=== PATIENT | male | born 1970 | race Caucasian/White ===

== ENCOUNTER 2019-12-04 20:42 | Inpatient (IN) | payer BC ==
[2019-12-05] MEDS ORDERED: LORazepam 2 MG/ML SDV IM PRN (06:35)
[2019-12-05] MEDS ORDERED: Sodium Chloride 0.9% 10 ML Syringe FLUSH PRN (06:35)
--- NOTE | 2019-12-05 06:35 | PCM.HP.2 ---
H&P History of Present Illness - General Date of Service: 12/05/19 Admit Problem/Dx: Admission Diagnosis/Problem Admission Diagnosis/Problem Ascites Source of Information: Patient, Old Records History Limitations: Reports: No Limitations - History of Present Illness Initial Comments - Free Text/Narative: The patient is a 49-year-old gentleman who was a direct admission from [place] for alcoholic withdrawals and cirrhosis with ascites. The patient reports that his last drink was from the day before admission. The patient was also noted to have been Covid negative. Further, the patient says that he had a therapeutic paracentesis completed in [place], [place] on November 25, 2019. Patient says that he has had some pain in his left lower rib cage whenever the ascites does accumulate. Patient has denied any aggravating or relieving factors. He is denied any pain. The patient does not have any other chronic medical issues other than nose related to his alcoholic cirrhosis and portal hypertension. The patient says that he does not have seizures whenever he is without alcohol or tremors. Onset of Symptoms: Reports: Gradual Duration of Symptoms: Reports: Day(s):, Getting Worse Location: Reports: Abdomen Quality: Reports: Pressure Severity: Moderate Improves with: Reports: Other (Therapeutic paracentesis) Worsens with: Reports: None Associated Symptoms: Reports: Loss of Appetite - Related Data Allergies/Adverse Reactions: Allergies Allergy/AdvReac Type Severity Reaction Status Date / Time Penicillins Allergy Rash Verified 12/04/19 23:13 Home Medications: Home Meds Amitriptyline [Elavil] 25 mg PO BEDTIME 12/04/19 [History] Enalapril Maleate [Vasotec] 20 mg PO DAILY 12/04/19 [History] Escitalopram [Lexapro] 10 mg PO DAILY 12/04/19 [History] Furosemide 40 mg PO DAILY 12/04/19 [History] Magnesium Oxide 400 mg PO DAILY 12/04/19 [History] Omeprazole 40 mg PO ACBREAKFAST PRN 12/04/19 [History] Spironolactone 50 mg PO DAILY 12/04/19 [History] atorvaSTATin [Lipitor] 10 mg PO BEDTIME 12/04/19 [History] nadoloL [Corgard] 20 mg PO BID 12/04/19 [History] Past Medical History HEENT History: Reports: Impaired Vision, Other (See Below) Other HEENT History: wears glasses Cardiovascular History: Reports: High Cholesterol, Hypertension Respiratory History: Reports: Other (See Below) Other Respiratory History: right lower lobe nodule Gastrointestinal History: Reports: Cirrhosis, GERD, Other (See Below) Other Gastrointestinal History: portal hypertension Genitourinary History: Reports: None Musculoskeletal History: Reports: None Neurological History: Reports: None Psychiatric History: Reports: ADHD, Addiction, Depression, Other (See Below) Other Psychiatric History: insomnia Endocrine/Metabolic History: Reports: None Hematologic History: Reports: Other (See Below) Other Hematologic History: secondary thrombocytopenia; macrocytic anemia; hyponatremia Dermatologic History: Reports: Eczema - Past Surgical History Cardiovascular Surgical History: Reports: Other (See Below) Other Cardiovascular Surgeries/Procedures: coarctation of aorta in 1969 and 1978 GI Surgical History: Reports: Colonoscopy, EGD, Hernia Repair/Other, Other (See Below) Other GI Surgeries/Procedures: paracentesis with most recent one done 11/26/19 Social & Family History - Family History Family Medical History: Noncontributory - Tobacco Use Tobacco Use Status *Q: Former Tobacco User Used Tobacco, but Quit: Yes Month/Year Tobacco Last Used: 2017 - Caffeine Use Caffeine Use: Reports: None - Recreational Drug Use Recreational Drug Use: No H&P Review of Systems - Review of Systems: Review Of Systems: See Below General: Reports: Malaise, Weakness HEENT: Reports: No Symptoms Pulmonary: Reports: Shortness of Breath Cardiovascular: Reports: No Symptoms Gastrointestinal: Reports: Abdominal Pain, Distension, Other (Rapidly reaccumulating ascites). Denies: Constipation, Diarrhea, Nausea Genitourinary: Reports: No Symptoms Musculoskeletal: Reports: No Symptoms Skin: Reports: No Symptoms Psychiatric: Reports: No Symptoms Neurological: Reports: Tremors Hematologic/Lymphatic: Reports: Easy Bleeding Immunologic: Reports: No Symptoms Exam - Exam Exam: See Below - Vital Signs Vital Signs: Last Vital Signs Temp 37.1 C 12/04/19 22:43 Pulse 71 12/04/19 22:43 Resp 18 12/04/19 22:43 BP 140/78 12/04/19 22:43 Pulse Ox 100 12/04/19 22:43 Weight: 73.89 kg - Exam Quality Assessment: No: Supplemental Oxygen, DVT Prophylaxis General: Alert, Oriented, Cooperative HEENT: EACs Clear, EOMI, Hearing Intact, Scleral Icterus. No: Conjunctiva Clear (Jaundiced), Mucosa Moist & [place] (Dry) Neck: Supple, Trachea Midline Lungs: Normal Respiratory Effort, Rales (Bibasilar) Cardiovascular: Regular Rate, Regular Rhythm GI/Abdominal Exam: Soft, Distended (Severely), Other (Ascites, caput medusae). No: Guarding, Rigid, Rebound (Male) Exam: Deferred Rectal (Males) Exam: Deferred Back Exam: Normal Inspection, Full Range of Motion Extremities: Normal Inspection, No Pedal Edema Skin: Warm, Dry, Intact, Other (Jaundiced with bilateral pulmonary flush and telangiectasias) Neurological: Cranial Nerves Intact, Other (No asterixis) Neuro Extensive - Mental Status: Alert, Oriented x3 Psychiatric: Alert, Normal Affect, Normal Mood - Patient Data Result Diagrams: 12/05/19 05:50 12/05/19 05:50 Sepsis Event Note - Evaluation Sepsis Screening Result: No Definite Risk - Focused Exam Vital Signs: Vital Signs Temp Pulse Resp BP Pulse Ox 12/04/19 22:43 37.1 C 71 18 140/78 100 - Problem List (1) Alcohol withdrawal SNOMED Code(s): 409747229 ICD Code: F10.239 - ALCOHOL DEPENDENCE WITH WITHDRAWAL, UNSPECIFIED Status: Acute Priority: High Current Visit: Yes Qualifiers: Complication of substance-induced condition: uncomplicated Qualified Cod e(s): F10.230 - Alcohol dependence with withdrawal, uncomplicated (2) Alcoholic cirrhosis of liver with ascites SNOMED Code(s): 019834938, 673638046 ICD Code: K70.31 - ALCOHOLIC CIRRHOSIS OF LIVER WITH ASCITES Status: Chronic Priority: High Current Visit: Yes (3) Anemia SNOMED Code(s): 930549671 ICD Code: D64.9 - ANEMIA, UNSPECIFIED Status: Chronic Priority: High Current Visit: Yes Qualifiers: Anemia type: acquired or hereditary hemolytic anemia Hemolytic anemia type: acquired, autoimmune, drug-induced Qualified Code(s): 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 (4) Portal hypertension SNOMED Code(s): 32574016 ICD Code: K76.6 - PORTAL HYPERTENSION Status: Chronic Priority: High Current Visit: Yes Problem Details: Rapidly reaccumulating ascites (5) Thrombocytopenia SNOMED Code(s): 137140314 ICD Code: D69.6 - THROMBOCYTOPENIA, UNSPECIFIED Status: Acute Current Visit: Yes Problem List Initiated/Reviewed/Updated: Yes Orders Last 24hrs: Active Orders 24 hr Category Date Time Status Patient Status [ADT] Routine ADT 12/04/19 23:06 Active Influenza Vaccine Charge [RC] .DISCHARGE Care 12/04/19 23:16 Active Regular Diet [DIET] Diet 12/05/19 Breakfast Active CBC WITH AUTO DIFF [HEME] Routine Lab 12/05/19 05:11 Ordered CMP [COMPREHENSIVE METABOLIC PN,CMP] [CHEM] Routine Lab 12/05/19 05:11 Ordered MG [MAGNESIUM] [CHEM] Routine Lab 12/05/19 05:11 Ordered PHOSPHORUS [CHEM] Routine Lab 12/05/19 05:11 Ordered Flu Vacc [id number](6Mos Up)/Pf [Fluzone Quad Med 12/05/19 10:00 Once Syringe] 60 mcg IM .ONCE ONE Code Status [Resuscitation Status] Routine Resus Stat 12/04/19 23:59 Ordered Medication Orders Influenza Virus Vaccine (Fluzone Quad Syringe) 60 mcg IM .ONCE ONE Stop: 12/05/19 10:01 Assessment/Plan Comment:: The patient is a 49-year-old gentleman who was admitted secondary to alcohol withdrawal. The patient will be kept on CIWA protocol. I have also ordered Ativan to assist with agitation/seizures. The patient will also have thiamine 100 mg p.o. daily, folic acid 1 mg p.o. daily and multivitamins. Because of the patient's history of coarctation of the aorta and possible cardiomyopathy I have ordered a 2D echocardiogram to assess this. The patient will have regular diet as tolerated. DVT prophylaxis is contraindicated secondary to the patient's thrombocytopenia and high INR. I have also ordered Protonix 40 mg IV push every 12 hours. The patient has a history of hypertension and he will be kept on his home medications. He also has been taking nadolol to help reduce his portal hypertension. We continued. The patient has been encouraged to ambulate with assistance. I have also consulted surgery for evaluation for therapeutic paracentesis. If this cannot be done the patient will be kept in hospital and stabilize for his withdrawal symptoms and then be considered for transfer to tertiary care center. I have also had a long conversation with the patient regarding his prognosis if he continues to consume alcohol. Given the patient's history of cirrhosis and still continuing to consume alcohol I suspect that this patient's prospect for continued sobriety are poor. - Mortality Measure Prognosis:: Poor
[2019-12-05] MEDS ORDERED: Sodium Chloride 0.9% 1,000 ML IV SCH (06:45)
[2019-12-05] MEDS: Magnesium Oxide 400 MG Tab PO SCH (08:35)
[2019-12-05] MEDS: Spironolactone 25 MG Tab PO SCH (08:36)
[2019-12-05] MEDS: Enalapril 5 MG Tab PO SCH (08:37)
[2019-12-05] MEDS: Furosemide 40 MG Tab PO SCH (08:38)
[2019-12-05] MEDS: Pantoprazole 40 MG Vial IVPUSH SCH ×2 (08:39→18:11)
[2019-12-05] MEDS ORDERED: Enoxaparin 30 MG/0.3 ML Syringe SUBCUT SCH (09:00)
[2019-12-05] MEDS ORDERED: FLU VACC QS2020-21(6MOS UP)/PF 60 MCG/0.5 ML SYRINGE IM ONE (10:00)
[2019-12-05] MEDS ORDERED: Magnesium Sulfate/Water 2 GM/50 ML BAG IV ONE (10:58)
[2019-12-05] MEDS: Multivitamins,Therapeutic Tab PO SCH (11:12)
[2019-12-05] MEDS: Folic Acid 1 MG Tab PO SCH (11:12)
[2019-12-05] MEDS ORDERED: Amitriptyline 25 MG Tab PO SCH (21:00)
[2019-12-05] MEDS ORDERED: Thiamine 100 MG Tab PO SCH (21:00)
[2019-12-06] MEDS: Pantoprazole 40 MG Vial IVPUSH SCH (06:52)
--- NOTE | 2019-12-06 08:59 | PCM.DCSUM1 ---
Discharge Summary - Discharge Data Discharge Date: 12/06/19 Discharge Disposition: DC/Tfer to Acute Hospital 02 Condition: Fair - Referral to Home Health Primary Care Physician: PCP None - Discharge Diagnosis/Problem(s) (1) Alcohol withdrawal SNOMED Code(s): 481949869 ICD Code: F10.239 - ALCOHOL DEPENDENCE WITH WITHDRAWAL, UNSPECIFIED Status: Acute Priority: High Current Visit: Yes Qualifiers: Complication of substance-induced condition: uncomplicated Qualified Code(s): F10.230 - Alcohol dependence with withdrawal, uncomplicated (2) Alcoholic cirrhosis of liver with ascites SNOMED Code(s): 545172284, 935745330 ICD Code: K70.31 - ALCOHOLIC CIRRHOSIS OF LIVER WITH ASCITES Status: Chronic Priority: High Current Visit: Yes (3) Anemia SNOMED Code(s): 088264063 ICD Code: D64.9 - ANEMIA, UNSPECIFIED Status: Chronic Priority: High Current Visit: Yes Qualifiers: Anemia type: acquired or hereditary hemolytic anemia Hemolytic anemia type: acquired, autoimmune, drug-induced Qualified Code(s): D59.0 - Drug-induced aut oimmune hemolytic anemia (4) Portal hypertension SNOMED Code(s): 17619260 ICD Code: K76.6 - PORTAL HYPERTENSION Status: Chronic Priority: High Current Visit: Yes Problem Details: Rapidly reaccumulating ascites (5) Thrombocytopenia SNOMED Code(s): 270481964 ICD Code: D69.6 - THROMBOCYTOPENIA, UNSPECIFIED Status: Acute Priority: High Current Visit: Yes - Patient Summary/Data Consults: Consultations 12/05/19 09:32 Consult to Physician [CONS] Urgent Hospital Course: The patient is a 49-year-old gentleman who is known for chronic alcoholism and severe alcoholic liver disease. The patient is a patient of radiological equipment specialist Dr. Crane. He is located in [facility]. The patient was admitted out of concern for alcoholic withdrawal symptoms. The patient had been in [facility] and he was noted to have a alcohol level of 0.33. The patient further had paracentesis completed in [facility] and had 9.9 L of ascites removed. The patient had reaccumulated severe ascites upon his presentation to the emergency department. The patient said that he had been short of breath. The patient was admitted to acute hospitalization and he was started on CIWA protocol and was given Ativan to help control withdrawal symptoms, agitation or seizures. He was also placed on thiamine 100 mg p.o. daily and folic acid 1 mg p.o. daily. General surgeon on-call was consulted and was unable to do paracentesis. The patient was kept in hospitalization to be monitored for acute withdrawal symptoms. The patient did not exhibit any withdrawal symptoms and his CIWA score was 0. Additionally, the patient was noted to be leukopenic and thrombocytopenic. The patient's INR was also elevated. His platelets were at 62,000. The patient was also hypomagnesemic and his magnesium was replaced. The patient was also hypoalbuminemic and this was likely secondary to hepatic synthesis. The patient also had been ordered to have a 2D echocardiogram due to possible cardiomyopathy as well as direct toxic effects of alcohol on heart muscle. This was unable to be obtained on the weekend. I would recommend that this be completed at a tertiary care center. The patient had been tolerating his regular diet. He has been recommended to continue with a regular diet as tolerated. The patient is also to have activity as tolerated. The patient also has been discharged from acute hospitalization by ambulance to emergency room at [facility] Dr. Hairston was excepting. - Patient Instructions Diet: Usual Diet as Tolerated Activity: As Tolerated - Discharge Plan *PRESCRIPTION DRUG MONITORING PROGRAM REVIEWED*: Not Applicable *COPY OF PRESCRIPTION DRUG MONITORING REPORT IN PATIENT STUART: Not Applicable Home Medications: Home Meds Amitriptyline [Elavil] 25 mg PO BEDTIME 12/04/19 [History] Enalapril Maleate [Vasotec] 20 mg PO DAILY 12/04/19 [History] Escitalopram [Lexapro] 10 mg PO DAILY 12/04/19 [History] Furosemide 40 mg PO DAILY 12/04/19 [History] Magnesium Oxide 400 mg PO DAILY 12/04/19 [History] Omeprazole 40 mg PO ACBREAKFAST PRN 12/04/19 [History] Spironolactone 50 mg PO DAILY 12/04/19 [History] nadoloL [Corgard] 20 mg PO BID 12/04/19 [History] Folic Acid 1 mg PO DAILY tablet 12/06/19 [Rx] Multivitamins,Therapeutic [Thera] 1 each PO DAILY tablet 12/06/19 [Rx] Thiamine [Vitamin B-1] 100 mg PO BEDTIME tablet 12/06/19 [Rx] Oxygen Therapy Mode: Room Air Patient Handouts: Alcoholic Liver Disease - Discharge Summary/Plan Comment DC Time >30 min.: Yes - General Info Date of Service: 12/06/19 Admission Dx/Problem (Free Text: Admission Diagnosis/Problem Admission Diagnosis/Problem Ascites secondary to portal hypertension from alcoholic cirrhosis of the liver Subjective Update: The patient has been complaining of shortness of breath due to his ascites reaccumulation. He otherwise has been tolerating diet. The patient has been recommended for transfer to [facility] and the patient agrees. Functional Status: Reports: Pain Controlled, Tolerating Diet - Review of Systems General: Reports: Weakness HEENT: Reports: No Symptoms Pulmonary: Reports: Shortness of Breath Cardiovascular: Reports: No Symptoms Gastrointestinal: Reports: Abdominal Pain, Other (Large amount of ascites) Genitourinary: Reports: No Symptoms Musculoskeletal: Reports: No Symptoms Skin: Reports: No Symptoms Neurological: Reports: No Symptoms Psychiatric: Reports: No Symptoms - Patient Data Vitals - Most Recent: Last Vital Signs Temp 36.8 C 12/06/19 07:59 Pulse 58 L 12/06/19 07:59 Resp 24 H 12/06/19 07:59 BP 107/42 L 12/06/19 07:59 Pulse Ox 95 12/06/19 07:59 Weight - Most Recent: 118.569 kg I&O - Last 24 hours: Intake & Output 12/05/19 12/06/19 12/06/19 22:59 06:59 14:59 Intake Total 990 1600 Output Total 1000 750 Balance -10 850 Lab Results - Last 24 hrs: Laboratory Results - last 24 hr 12/06/19 12/06/19 12/06/19 Range/Units 05:35 05:35 05:35 WBC 2.83 L (4.23-9.07) K/mm3 RBC 2.90 L (4.63-6.08) M/mm3 Hgb 10.1 L (13.7-17.5) gm/dl Hct 30.9 L (40.1-51.0) % MCV 106.6 H (79.0-92.2) fl MCH 34.8 H (25.7-32.2) pg MCHC 32.7 (32.2-35.5) g/dl RDW Std Deviation 66.0 H (35.1-43.9) fL Plt Count 62 L (163-337) K/mm3 MPV 9.8 (9.4-12.3) fl Neut % (Auto) 52.7 (34.0-67.9) % Lymph % (Auto) 26.1 (21.8-53.1) % [place] % (Auto) 17.7 H (5.3-12.2) % Eos % (Auto) 2.8 (0.8-7.0) Baso % (Auto) 0.7 (0.1-1.2) % Neut # (Auto) 1.49 L (1.78-5.38) K/mm3 Lymph # (Auto) 0.74 L (1.32-3.57) K/mm3 [place] # (Auto) 0.50 (0.30-0.82) K/mm3 Eos # (Auto) 0.08 (0.04-0.54) K/mm3 Baso # (Auto) 0.02 (0.01-0.08) K/mm3 Manual Slide Review Abnormal smear PT 14.8 H (9.7-12.0) SECONDS INR 1.39 Sodium 128 L (136-145) mEq/L Potassium 3.7 (3.5-5.1) mEq/L Chloride 97 L (98-107) mEq/L Carbon Dioxide 22 (21-32) mEq/L Anion Gap 12.7 (5-15) BUN 21 H (7-18) mg/dL Creatinine 1.2 (0.7-1.3) mg/dL Est Cr Clr Drug Dosing 73.65 mL/min Estimated GFR (MDRD) > 60 (>60) mL/min BUN/Creatinine Ratio 17.5 (14-18) Glucose 92 (74-106) mg/dL Calcium 8.0 L (8.5-10.1) mg/dL Magnesium 1.9 (1.8-2.4) mg/dl Total Bilirubin 5.0 H (0.2-1.0) mg/dL AST 54 H (15-37) U/L ALT 27 (16-63) U/L Alkaline Phosphatase 97 (46-116) U/L Total Protein 6.2 L (6.4-8.2) g/dl Albumin 2.1 L (3.4-5.0) g/dl Globulin 4.1 gm/dL Albumin/Globulin Ratio 0.5 L (1-2) Med Orders - Current: Current Medications Amitriptyline HCl (Elavil) 25 mg PO BEDTIME [facility] Last Admin: 12/05/19 20:32 Dose: 25 mg Documented by: Enalapril Maleate (Vasotec) 20 mg PO DAILY [facility] Last Admin: 12/05/19 08:37 Dose: 20 mg Documented by: Folic Acid (Folic Acid) 1 mg PO DAILY [facility] Last Admin: 12/05/19 11:12 Dose: 1 mg Documented by: Furosemide (Lasix) 40 mg PO DAILY [facility] Last Admin: 12/05/19 08:38 Dose: 40 mg Documented by: Lorazepam (Ativan) 1 mg IM Q4H PRN PRN Reason: Agitation Magnesium Oxide (Magnesium Oxide) 400 mg PO DAILY [facility] Last Admin: 12/05/19 08:35 Dose: 400 mg Documented by: Multivitamins (Thera) 1 each PO DAILY [facility] Last Admin: 12/05/19 11:12 Dose: 1 each Documented by: Nadolol (Naldol) 20 mg PO BID [facility] Last Admin: 12/05/19 20:28 Dose: 20 mg Documented by: Pantoprazole Sodium (Protonix Iv) 40 mg IVPUSH Q12H [facility] Last Admin: 12/06/19 06:52 Dose: 40 mg Documented by: Sodium Chloride (Saline Flush) 10 ml FLUSH ASDIRECTED PRN PRN Reason: Keep Vein Open Spironolactone (Aldactone) 50 mg PO DAILY [facility] Last Admin: 12/05/19 08:36 Dose: 50 mg Documented by: Thiamine HCl (Vitamin B-1) 100 mg PO BEDTIME [facility] Last Admin: 12/05/19 20:29 Dose: 100 mg Documented by: Discontinued Medications Enoxaparin Sodium (Lovenox) 30 mg SUBCUT DAILY [facility] Sodium Chloride (Normal Saline) 1,000 mls @ 75 mls/hr IV ASDIRECTED [facility] Magnesium Sulfate (Magnesium Sulfate In Water Premix) 2 gm in 50 mls @ 25 mls/hr IV ONETIME ONE Stop: 12/05/19 12:57 Last Admin: 12/05/19 11:12 Dose: 25 mls/hr Documented by: Influenza Virus Vaccine (Pharmacy To Dose - Influenza Vaccine) 1 each IM ONETIME ONE Stop: 12/04/19 23:17 Influenza Virus Vaccine (Fluzone Quad [id number] Syringe) 60 mcg IM .ONCE ONE Stop: 12/05/19 10:01 - Exam Quality Assessment: Denies: Supplemental Oxygen, DVT Prophylaxis General: Reports: Alert, Oriented, Cooperative, Moderate Distress HEENT: Reports: Pupils Equal, Pupils Reactive, EOMI, Mucous Membr. Moist/[employer] Neck: Reports: Supple, Trachea Midline Lungs: Reports: Clear to Auscultation, Normal Respiratory Effort Cardiovascular: Reports: Regular Rate, Regular Rhythm GI/Abdominal Exam: Normal Bowel Sounds, Soft, Distended (Massive distention to a scites) (Male) Exam: Deferred Rectal (Males) Exam: Deferred Back Exam: Reports: Normal Inspection, Full Range of Motion Extremities: Normal Inspection, No Pedal Edema Skin: Reports: Warm, Dry, Intact Psy/Mental Status: Reports: Alert, Normal Affect, Normal Mood
[2019-12-06] MEDS: Enalapril 5 MG Tab PO SCH (09:29)
[2019-12-06] MEDS: Furosemide 40 MG Tab PO SCH (09:29)
[2019-12-06] MEDS: Folic Acid 1 MG Tab PO SCH (09:30)
[2019-12-06] MEDS: Spironolactone 25 MG Tab PO SCH (09:31)
[2019-12-06] MEDS: Multivitamins,Therapeutic Tab PO SCH (09:31)
[2019-12-06] MEDS: Magnesium Oxide 400 MG Tab PO SCH (09:31)
== END 2019-12-06 13:59 | DRG 775 ==
LOC: JD.MS 22:40
PROVIDERS: ADMIT Internal Medicine; ATTEND Internal Medicine
DX: F10.239 Alcohol dependence with withdrawal, unspecified (principal); K70.31 Alcoholic cirrhosis of liver with ascites; D59.19 Other autoimmune hemolytic anemia; K76.6 Portal hypertension; D69.6 Thrombocytopenia, unspecified; R45.1 Restlessness and agitation; H54.7 Unspecified visual loss; E78.00 Pure hypercholesterolemia, unspecified; I10 Essential (primary) hypertension; K21.9 Gastro-esophageal reflux disease without esophagitis; F90.9 Attention-deficit hyperactivity disorder, unspecified type; F32.9 Major depressive disorder, single episode, unspecified; E83.42 Hypomagnesemia; E88.09 Other disorders of plasma-protein metabolism, not elsewhere classified; I42.9 Cardiomyopathy, unspecified; Z79.01 Long term (current) use of anticoagulants; Z88.0 Allergy status to penicillin; Z87.19 Personal history of other diseases of the digestive system; Z86.59 Personal history of other mental and behavioral disorders; Z87.891 Personal history of nicotine dependence; Z79.899 Other long term (current) drug therapy; Z98.890 Other specified postprocedural states; Q25.1 Coarctation of aorta
CPT/HCPCS: 36415; 80053; 83735; 84100; 85025; 85610; A9270-GY; C9113; J3475